=== PATIENT | male | born 1955 | race Caucasian/White ===

== ENCOUNTER 2017-09-25 05:04 | Emergency (ER) | payer MEDICAID ==
[2017-09-25 06:04] LABS: BASOPHIL % 1.6 % (0-2); PLATELET COUNT 328 x10^3mcL (130-400); RED CELL DISTRIBUTION WIDTH 14.5 % (11.5-14.5)
[2017-09-25 06:25] LABS: CALCIUM 8.4 mg/dL (8.5-10.1); CARBON DIOXIDE 23.3 mmol/L (21-32); CHLORIDE SERUM 104 mmol/L (98-107); CREATININE SERUM 1.2 mg/dL (0.7-1.3); GFR1 > 60 mL/min; GLUCOSE SERUM 101 mg/dL (74-106); POTASSIUM SERUM 3.5 mmol/L (3.5-5.1); SODIUM SERUM 139 mmol/L (136-145)
[2017-09-25 06:30] LABS: ALBUMIN 3.9 g/dL (3.4-5.0); ALKALINE PHOSPHATASE 60 U/L (46-116); ALT/SGPT 33 U/L (16-63); AST/SGOT 19 U/L (15-37); BILIRUBIN TOTAL 0.49 mg/dL (0.20-1.00); TOTAL PROTEIN, SERUM 7.6 g/dL (6.4-8.2)
[2017-09-25 08:08] VITALS: BP 149/92
== END 2017-09-25 08:08 | disposition home or self-care (01) ==
LOC: ED 05:04
PROVIDERS: Emergency Medicine
DX: J44.1 Chronic obstructive pulmonary disease with (acute) exacerbation (principal)
CPT/HCPCS: 83880; J2930; J3475; J3490; J7620; Q0092

== ENCOUNTER 2018-06-02 15:59 | Emergency (ER) | payer MEDICAID ==
[~2018-06-02] VITALS: Ht 177.8 cm; Wt 83.0 kg
[2018-06-02 18:25] VITALS: BP 128/87
== END 2018-06-02 19:17 | disposition home or self-care (01) ==
LOC: ED 15:59
DX: S80.12XA Contusion of left lower leg, initial encounter (principal); J45.909 Unspecified asthma, uncomplicated; V89.2XXA Person injured in unspecified motor-vehicle accident, traffic, initial encounter; Y93.89 Activity, other specified; Y92.89 Other specified places as the place of occurrence of the external cause; Y99.8 Other external cause status
CPT/HCPCS: J0690; J3010; J7620

== ENCOUNTER 2018-06-07 08:36 | Emergency (ER) | payer MEDICAID ==
[~2018-06-07] VITALS: Ht 177.8 cm; Wt 83.0 kg
[2018-06-07 08:45] VITALS: Ht 177.8 cm; Wt 83.0 kg
[2018-06-07 12:13] VITALS: BP 120/94
== END 2018-06-07 12:41 | disposition left against medical advice (07) ==
LOC: ED 08:36
DX: L02.416 Cutaneous abscess of left lower limb (principal); J45.909 Unspecified asthma, uncomplicated
CPT/HCPCS: Q0092

== ENCOUNTER 2018-06-07 13:43 | Emergency (ER) | payer MEDICAID ==
[~2018-06-07] VITALS: Ht 177.8 cm; Wt 85.7 kg
[2018-06-07 14:00] VITALS: Ht 177.8 cm; Wt 85.7 kg
[2018-06-07 17:30] VITALS: BP 106/73
== END 2018-06-07 17:30 | disposition home or self-care (01) ==
LOC: ED 13:43
DX: S70.12XD Contusion of left thigh, subsequent encounter (principal); L03.116 Cellulitis of left lower limb; V89.2XXD Person injured in unspecified motor-vehicle accident, traffic, subsequent encounter
CPT/HCPCS: J2001; J7512; J7620

== ENCOUNTER 2018-06-10 14:18 | Emergency (ER) | payer MEDICAID ==
[~2018-06-10] VITALS: Ht 177.8 cm; Wt 82.7 kg
[2018-06-10 14:54] VITALS: Ht 177.8 cm; Wt 82.7 kg
[2018-06-10 15:36] VITALS: BP 124/81
== END 2018-06-10 15:36 | disposition home or self-care (01) ==
LOC: ED 14:18
DX: S80.12XA Contusion of left lower leg, initial encounter (principal); J45.909 Unspecified asthma, uncomplicated; V89.2XXA Person injured in unspecified motor-vehicle accident, traffic, initial encounter; Y93.89 Activity, other specified; Y92.89 Other specified places as the place of occurrence of the external cause; Y99.8 Other external cause status

== ENCOUNTER 2018-06-13 15:23 | Emergency (ER) | payer MEDICAID ==
[~2018-06-13] VITALS: Ht 177.8 cm; Wt 82.1 kg
[2018-06-13 15:27] VITALS: BP 144/97
== END 2018-06-13 16:43 | disposition home or self-care (01) ==
LOC: ED 15:23
DX: Z48.01 Encounter for change or removal of surgical wound dressing (principal)

== ENCOUNTER 2018-06-30 12:01 | Emergency (ER) | payer MEDICAID ==
[~2018-06-30] VITALS: Ht 177.8 cm; Wt 81.6 kg
[2018-06-30 12:13] VITALS: BP 116/88; Ht 177.8 cm; Wt 81.6 kg
== END 2018-06-30 13:07 | disposition home or self-care (01) ==
LOC: ED 12:01
DX: S61.012A Laceration without foreign body of left thumb without damage to nail, initial encounter (principal); J45.909 Unspecified asthma, uncomplicated; X58.XXXA Exposure to other specified factors, initial encounter; Y93.89 Activity, other specified; Y92.89 Other specified places as the place of occurrence of the external cause; Y99.8 Other external cause status

== ENCOUNTER 2018-07-07 08:56 | Emergency (ER) | payer MEDICAID ==
[~2018-07-07] VITALS: Ht 177.8 cm; Wt 82.6 kg
[2018-07-07 09:00] VITALS: Ht 177.8 cm; Wt 82.6 kg
[2018-07-07 10:00] LABS: BASOPHIL % 0.4 % (0-2); PLATELET COUNT 294 x10^3mcL (130-400); RED CELL DISTRIBUTION WIDTH 13.6 % (11.5-14.5)
[2018-07-07 10:23] LABS: CALCIUM 8.6 mg/dL (8.5-10.1); CARBON DIOXIDE 27.8 mmol/L (21-32); CHLORIDE SERUM 103 mmol/L (98-107); CREATININE SERUM 1.1 mg/dL (0.7-1.3); GFR1 > 60 mL/min; GLUCOSE SERUM 111 mg/dL (74-106); SODIUM SERUM 137 mmol/L (136-145)
[2018-07-07 10:27] LABS: ALBUMIN 3.6 g/dL (3.4-5.0); ALKALINE PHOSPHATASE 59 U/L (46-116); ALT/SGPT 26 U/L (16-63); AST/SGOT 22 U/L (15-37); BILIRUBIN TOTAL 0.41 mg/dL (0.20-1.00)
[2018-07-07 11:09] VITALS: BP 118/79
== END 2018-07-07 09:28 | disposition home or self-care (01) ==
LOC: ED 08:56
PROVIDERS: Emergency Medicine
DX: J45.901 Unspecified asthma with (acute) exacerbation (principal)
CPT/HCPCS: 83880; J2930; J7613; Q0092

== ENCOUNTER 2018-12-15 18:48 | Emergency (ER) | payer MEDICAID ==
[2018-12-15 20:47] LABS: CALCIUM 9.3 mg/dL (8.5-10.1); CARBON DIOXIDE 27.8 mmol/L (21-32); CHLORIDE SERUM 101 mmol/L (98-107); GFR1 > 60 mL/min; GLUCOSE SERUM 81 mg/dL (74-106)
[2018-12-15 20:51] LABS: ALKALINE PHOSPHATASE 129 U/L (46-116); ALT/SGPT 33 U/L (16-63); BILIRUBIN TOTAL 0.4 mg/dL (0.20-1.00); LIPASE 125 IU/L (73-393); TOTAL PROTEIN, SERUM 8.1 g/dL (6.4-8.2)
[2018-12-15 20:55] LABS: BASOPHIL % 1.2 % (0-2); PLATELET COUNT 333 x10^3mcL (130-400); RED CELL DISTRIBUTION WIDTH 14.4 % (11.5-14.5)
[2018-12-15 21:02] LABS: AST/SGOT 2 U/L (15-37); POTASSIUM SERUM 5.1 mmol/L (3.5-5.1); SODIUM SERUM 132 mmol/L (136-145)
[2018-12-15 21:14] LABS: ALBUMIN 3.3 g/dL (3.4-5.0)
[2018-12-15 22:11] VITALS: BP 138/99
== END 2018-12-15 22:11 | disposition home or self-care (01) ==
LOC: ED 18:48
PROVIDERS: Emergency Medicine
DX: T43.595A Adverse effect of other antipsychotics and neuroleptics, initial encounter (principal); F41.9 Anxiety disorder, unspecified; R06.00 Dyspnea, unspecified; J45.909 Unspecified asthma, uncomplicated; Y92.89 Other specified places as the place of occurrence of the external cause
CPT/HCPCS: J2060; J7030; Q0092